=== PATIENT | female | born 1995 | race Caucasian/White ===

== ENCOUNTER 2016-09-22 09:53 | Emergency (ER) | payer MEDICAID ==
[~2016-09-22] VITALS: Ht 167.6 cm; Wt 1134.0 kg
[2016-09-22 11:26] LABS: CLARITY URINE CLOUDY (CLEAR); COLOR URINE YELLOW (YELLOW); GLUCOSE URINE NEGATIVE (NEGATIVE); KETONES URINE NEGATIVE (NEGATIVE); LEUKOCYTE ESTERASE URINE TRACE (NEGATIVE); NITRITE URINE NEGATIVE (NEGATIVE); OCCULT BLOOD URINE 3+ (NEGATIVE); PROTEIN URINE 1+ (NEGATIVE); SPECIFIC GRAVITY URINE 1.025 (1.005-1.030)
[2016-09-22 12:20] VITALS: BP 118/56
== END 2016-09-22 12:53 | disposition home or self-care (01) ==
LOC: ER 11:34
DX: N39.0 Urinary tract infection, site not specified (principal); Z88.0 Allergy status to penicillin
CPT/HCPCS: 81001; 81025; 99283; Z7610

== ENCOUNTER 2019-05-08 13:01 | Emergency (ER) | payer SELFPAY ==
[~2019-05-08] VITALS: Ht 167.6 cm; Wt 147.7 kg
[2019-05-08] MEDS ORDERED: IBUPROFEN 600MG TABLET PO ONE (16:45)
[2019-05-08 17:02] VITALS: BP 164/98
== END 2019-05-08 17:00 | disposition home or self-care (01) ==
LOC: ER 13:09
DX: M25.562 Pain in left knee (principal); V03.90XA Pedestrian on foot injured in collision with car, pick-up truck or van, unspecified whether traffic or nontraffic accident, initial encounter; Y93.89 Activity, other specified; Y92.410 Unspecified street and highway as the place of occurrence of the external cause
CPT/HCPCS: 73562; 81025; 99283

== ENCOUNTER 2022-12-15 13:34 | Emergency (ER) | payer BC, MEDICAID ==
[~2022-12-15] VITALS: Ht 167.6 cm; Wt 106.0 kg
[2022-12-15 13:41] VITALS: BP 125/93; PULSE 95; RESP 16; TEMP 98.3; O2SAT 99
== END 2022-12-15 17:29 | disposition left against medical advice (07) ==
LOC: ER 13:34
DX: R42 Dizziness and giddiness (principal)
CPT/HCPCS: 99283